=== PATIENT | female | born 1975 | race Two or more races ===

== ENCOUNTER 2022-02-03 16:42 | Emergency (ER) | payer BC ==
[~2022-02-03] VITALS: Ht 162.6 cm; Wt 97.5 kg
[2022-02-03 17:28] LABS: BASOPHILS % (AUTO) 0.4 % (0.0-2.0); EOSINOPHILS % (AUTO) 1.1 % (0.0-6.0); HEMATOCRIT 35 % (33-45); HEMOGLOBIN 11.1 g/dL (11.5-14.8); LYMPHOCYTES # (AUTO) 1.7 K/uL (0.8-4.8); LYMPHOCYTES % (AUTO) 15.9 % (20.0-44.0); MEAN CORPUSCULAR HGB CONC 32 g/dl (31.0-36.0); MEAN CORPUSCULAR VOLUME 77 fL (82-100); MONOCYTES # (AUTO) 0.8 K/uL (0.1-1.30); MONOCYTES % (AUTO) 7.1 % (2.0-12.0); NEUTROPHILS % (AUTO) 75.5 % (43.0-81.0); PLATELET COUNT (AUTO) 399 K/uL (150-450); RED BLOOD CELL COUNT(AUTO) 4.52 MIL/uL (4.0-5.2); WHITE BLOOD COUNT (AUTO) 10.7 K/uL (4.3-11.0)
--- NOTE | 2022-02-03 17:30 | NUR ---
Very anxious. Complaining of pain. Await MD evaluation Both patient and CG updated w/plan
[2022-02-03 17:37] LABS: BILIRUBIN,URINE NEGATIVE (NEGATIVE); COLOR,URINE YELLOW (YELLOW); LEUKOCYTE ESTERASE ,URINE 1+ (NEGATIVE); NITRITE, URINE NEGATIVE (NEGATIVE); PH,URINE 5.5 (5.0-8.0); PROTEIN,URINE NEGATIVE (NEGATIVE); UGLUCOSE NEGATIVE (NEGATIVE); UROBILINOGEN,URINE 0.2 EU/dL (0.2)
[2022-02-03 17:41] LABS: BACTERIA,URINE 1+ /HPF (None Seen); RBC,URINE 51-80 /HPF (0-2)
[2022-02-03 17:43] LABS: CREATININE 0.8 mg/dL (0.6-1.3)
[2022-02-03 17:48] LABS: ALBUMIN 3.9 g/dL (3.4-5.0); BILIRUBIN,DIRECT 0.1 mg/dL (0.0-0.2); BILIRUBIN,TOTAL 0.3 mg/dL (0.2-1.0); TOTAL PROTEIN, SERUM 7.9 g/dL (6.4-8.2)
[2022-02-03] MEDS ORDERED: IV NS 0.9% 1,000 ML IV ONE (18:00)
--- NOTE | 2022-02-03 18:30 | NUR ---
Pain free. Comfortable/reclining in bed- conversing with family. Both Aware of plan of care
[2022-02-03] MEDS ORDERED: IBUP-1953 PO (19:06)
[2022-02-03] MEDS ORDERED: TAMS-12 PO (19:06)
[2022-02-03] MEDS ORDERED: ONDA4TAB5 PO (19:06)
--- NOTE | 2022-02-03 19:28 | NUR ---
Patient discharged to home in stable condition. Written and verbal after care instructions given. Patient verbalizes understanding of instruction.
[2022-02-03 19:29] VITALS: BP 147/89
== END 2022-02-03 19:30 | disposition home or self-care (01) ==
LOC: ER 16:51
DX: N13.2 Hydronephrosis with renal and ureteral calculous obstruction (principal); N39.0 Urinary tract infection, site not specified
CPT/HCPCS: 99284; 74176; 96360; 85025; 80048; 87086; 83690; 80076; 84703; 81001; 36415; J7030